=== PATIENT | male | born 1960 | race Caucasian/White ===

== ENCOUNTER → 2020-09-14 10:38 | Outpatient (CLI) | payer BC ==
[2020-08-02 11:40] VITALS: BMI 29.8
[~2020-09-14 10:38] MED LIST: BAYER CHEWABLE81 MG PO; COREG6.25 MG PO; ELIQUIS5 MG PO; ENTRESTO 24 MG1 EACH PO; JANUMET 50-5001 EAC1 PO; JANUMET XR 50-1 EAC1 PO; K-DUR20 MEQ PO; LASIX20 MG PO; LISINOPRIL10 MG PO; PACERONE200 MG PO; RYBELSUS PO
== END | disposition home or self-care (01) ==
LOC: D.HCCECHO 10:38
PROVIDERS: ATTEND Internal Medicine Cardiovascular Disease
DX: I42.9 Cardiomyopathy, unspecified (principal)